=== PATIENT | female | born 1935 | race Caucasian/White ===

== ENCOUNTER 2025-03-21 18:00 | Emergency (ER) | payer MEDICARE, OTHER ==
[~2025-03-21] VITALS: Ht 154.9 cm; Wt 67.3 kg
[~2025-03-21 18:00] MED LIST: ASPI81TA83 OR; COZA50TA18 OR; DIGO0.257 OR; ZETI10TA OR; ZYRTEC D OR
[2025-03-21] MEDS ORDERED: LISI10TA22 PO (18:21)
[2025-03-21] MEDS ORDERED: ELIQ5TAB PO (18:21)
[2025-03-21] MEDS ORDERED: JANU25TA PO (18:21)
[2025-03-21] MEDS ORDERED: CETI-25 PO (18:21)
[2025-03-21] MEDS ORDERED: METO1TAB87 PO (18:21)
[2025-03-21] MEDS: ACETAMINOPHEN 500 MG TAB PO ONE (19:17)
[2025-03-21 20:30] VITALS: BP 127/60; O2SAT 96
[2025-03-21 20:53] VITALS: TEMP 98.4
== END 2025-03-21 20:59 | disposition home or self-care (01) ==
LOC: M ED 18:00
DX: S93.402A Sprain of unspecified ligament of left ankle, initial encounter (principal); X50.0XXA Overexertion from strenuous movement or load, initial encounter; N18.30 Chronic kidney disease, stage 3 unspecified; F41.9 Anxiety disorder, unspecified; G47.30 Sleep apnea, unspecified; E11.9 Type 2 diabetes mellitus without complications; Y92.009 Unspecified place in unspecified non-institutional (private) residence as the place of occurrence of the external cause; Y93.89 Activity, other specified; Y99.9 Unspecified external cause status; Z88.0 Allergy status to penicillin; Z88.5 Allergy status to narcotic agent; Z88.8 Allergy status to other drugs, medicaments and biological substances; Z79.01 Long term (current) use of anticoagulants; Z79.899 Other long term (current) drug therapy

== ENCOUNTER → 2025-09-03 | Outpatient (REF) | payer OTHER ==
[~2025-09-03] MED LIST changes: +CETI-25 PO; +ELIQ5TAB PO; +JANU25TA PO; +LISI10TA22 PO; +METO1TAB87 PO
== END ==
LOC: M LAB REF 12:32
PROVIDERS: ATTEND Physician Assistant Medical
DX: G62.9 Polyneuropathy, unspecified (principal)